=== PATIENT | female | born 1975 | race Two or more races ===

== ENCOUNTER 2019-12-08 16:43 | Outpatient (REF) | payer OTHER, SELFPAY | END 2019-12-08 16:44 | disposition home or self-care (01) | LOC: HO.LAB 16:43 | PROVIDERS: Visit Provider Internal Medicine | DX: Z20.828 Contact with and (suspected) exposure to other viral communicable diseases (principal) | CPT/HCPCS: U0003 ==

== ENCOUNTER 2020-03-05 17:23 | Outpatient (REF) | payer OTHER, SELFPAY | END 2020-03-05 17:24 | disposition home or self-care (01) | LOC: HO.LAB 17:23 | PROVIDERS: Visit Provider Internal Medicine | DX: Z20.822 Contact with and (suspected) exposure to COVID-19 (principal) | CPT/HCPCS: 36415; C9803; U0003 ==

== ENCOUNTER 2020-10-24 12:51 | Outpatient (REF) | payer OTHER, SELFPAY | END 2020-10-24 12:52 | disposition home or self-care (01) | LOC: HO.LAB 12:51 | PROVIDERS: Visit Provider Internal Medicine | DX: Z20.822 Contact with and (suspected) exposure to COVID-19 (principal) | CPT/HCPCS: C9803; U0003; U0005 ==

== ENCOUNTER 2024-07-07 09:51 | Outpatient (REF) | payer OTHER, SELFPAY ==
[2024-07-07 13:36] LABS: Cholesterol 251 mg/dL (<200); Glucose Fasting 104 mg/dL (60-99); HDL Cholesterol 42 mg/dL (>40); LDL Cholesterol Calculated 181 mg/dL (<100); Triglycerides 144 mg/dL (<150)
== END 2024-07-07 09:52 | disposition home or self-care (01) ==
LOC: HO.10HDL 09:51
PROVIDERS: Visit Provider Family Medicine
DX: I10 Essential (primary) hypertension (principal); Z83.3 Family history of diabetes mellitus; Z13.1 Encounter for screening for diabetes mellitus
CPT/HCPCS: 36415; 80061; 82947

== ENCOUNTER 2024-07-27 11:00 | Outpatient (REF) | payer OTHER, SELFPAY ==
[2024-07-27 13:42] LABS: Thyroid Stimulating Hormone 1.07 uIU/mL (0.32-4.0)
== END 2024-07-27 11:01 | disposition home or self-care (01) ==
LOC: HO.10HDL 11:00
PROVIDERS: Visit Provider Family Medicine
DX: R53.83 Other fatigue (principal)
CPT/HCPCS: 36415; 84439; 84443

== ENCOUNTER 2024-10-06 10:11 | Outpatient (AMB) | payer OTHER, SELFPAY ==
--- NOTE | 2024-10-06 10:19 | MHC.PC.OV ---
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 She reports experiencing a reaction to a bee sting that occurred last night around 5:00 PM. The sting site is described as burning severely, and the size has been increasing despite using ice and an ointment. She has a history of stress-induced seizures, with the last occurrence over six months ago. She manages stress with intermittent lorazepam use but prefers to avoid regular medication. Her breast health history includes the discovery of two lumps that were biopsied and found to be non-cancerous. Her last mammogram was conducted in April this year. She reports a past phase of smoking and occasional alcohol use, with her last drink in November for her 48th birthday. She mentions streaks of constipation, which she manages by consuming prune juice mixed with apple juice. She also reports frequent nighttime urination but attributes it to high fluid intake due to a dry mouth. Polyuria and blurry vision are additional symptoms she experiences. She mentions regular sinus and ear infections impacting her hearing. Her surgical history includes an endometrial ablation over 17 years ago due to heavy menstrual bleeding. Medical History: - Stress-induced seizure disorder - History of non-malignant breast lumps - Heavy menstrual bleeding requiring endometrial ablation - Chronic sinus and ear infections - Constipation managed through diet modifications Surgical History: - Endometrial ablation over 17 years ago - Stitches in right ankle from a fall in [place] Medications: - Lorazepam as needed for stress management related to seizure disorder Family History: - Family history of skin cancer (maternal side) - Diabetes and cardiology issues in older family members Social: - Non-smoker; brief history of smoking at age 20 for a few months - Drinks alcohol occasionally; last consumption in November - Comfortable living conditions, no financial concerns - Has children, with reported stress related to parenting - Reports an organized lifestyle with a preference for cleanliness and order [facility] Medical History (Updated 10/06/24 @ 11:12 by Graeme Kiran MD) Healthcare maintenance Social History (System 09/25/21 @ 11:10 by Pratima Grullon) Housing: House Patient Tobacco Use Status: Former Tobacco user Tobacco use type: Cigarette e-Cigarette/Vaping Use: Never Used Second Hand Smoke Exposure: No Current occupational status: employed Questionnaire PHQ-9 Over the last 2 weeks, how often have you been bothered by any of the following problems? 1. Little interest or pleasure in doing things: not at all 2. Feeling down, depressed, or hopeless: not at all 3. Trouble falling or staying asleep, or sleeping too much: not at all 4. Feeling tired or having little energy: not at all 5. Poor appetite or overeating: not at all 6. Feeling bad about yourself - or that you are a failure or have let yourself or your family down: not at all 7. Trouble concentrating on things, such as reading the newspaper or watching television: not at all 8. Moving or speaking so slowly that other people could have noticed. Or the opposite - being so fidgety or restless that you have been moving around a lot more than usual: not at all 9. Thoughts that you would be better off or of hurting yourself in some way: not at all Total score: 0 Depression Screening Interpretation: Negative Depression Screening Done: Yes 74875 - PHQ-9 Billing: Yes Source: Developed by Drs. Popeye Marcano, Hafsa Lara, Stevie Juares and colleagues, with an educational susie from [employer]. Thrive Questionnaire Date Thrive assessed: 10/06/24 I am a: Patient What is your living situation today?: I have a steady place to live Within the past 12 months, did the food you bought not last and you didn't have the money to get more?: Never true Within the past 12 months, did you worry whether your food would run out before you got money to buy more?: Never true Do you have trouble paying for medicines?: No Do you have trouble getting transportation to medical appointments?: No Do you have trouble paying your heating and electricity bill?: No Do you have trouble taking care of your child, family member or friend?: No Do you have trouble with day-to-day activities such as bathing, preparing meals, shopping, managing finances, etc.?: No Are you currently unemployed and looking for a job?: No Are you interested in more education?: No THRIVE Score: 0 AUDIT C Alcohol Use Questionnaire (AUDIT-C) 1. How often do you have a drink containing alcohol?: Monthly or less 2. How many drinks containing alcohol do you have on a typical day when you are drinking?: 1 or 2 3. How often do you have six or more drinks on one occasion?: Never Total Score: 1 Score Reviewed/Action Taken: Yes JOSE ALFREDO-7 AMB Questionnaire JOSE ALFREDO-7 Date JOSE ALFREDO - 7 assessed: 10/06/24 Feeling nervous, anxious, or on edge: 0 = Not at all Not being able to stop or control worryin = Not at all Worrying too much about different things: 0 = Not at all Trouble relaxin = Not at all Being so restless that it is hard to sit still: 0 = Not at all Becoming easily annoyed or irritable: 0 = Not at all Feeling afraid as if something awful might happen: 0 = Not at all Total JOSE ALFREDO-7 score (0-4 normal; 5-9 mild; 10-14 moderate; 15-21 severe): 0 Source: Developed by Drs. Popeye Marcano, Hafsa Lara, Stevie Juares and colleagues, with an educational susie from [employer]. JOSE ALFREDO-7 Assessment Billing JOSE ALFREDO-7 Assessment Tool: JOSE ALFREDO-7 Assessment 67485 Review of Systems Const Details: - Integumentary: Reports reaction to bee sting - Neurological: Denies seizures in recent months - Gastrointestinal: Reports constipation, polyuria - Ophthalmologic: Reports blurry vision - Ear/Nose/Throat: Reports recurrent sinus, ear infections - Genitourinary: Reports frequent urination, especially at night All systems reviewed & are unremarkable except as noted in HPI and below Physical exam (Primary Care) Vital Signs: Last Vital Signs Temp 97.2 F 10/06/24 10:37 Pulse 85 10/06/24 10:37 Resp 16 10/06/24 10:37 BP 126/76 10/06/24 10:37 Pulse Ox 95 10/06/24 10:37 Oxygen Delivery Method Room Air 10/06/24 10:37 BMI result Body Mass Index 33.7 Tobacco/Smoking Status: Tobacco use Status Tobacco use date assessed 10/06/24 10/06/24 10:20 Patient Tobacco Use Status Former Tobacco user 10/06/24 10:40 Tobacco use type Cigarette 10/06/24 10:40 e-Cigarette/Vaping Use Never Used 10/06/24 10:20 Depression Screening Interpretation: Negative Const Other: General: +Alert and oriented, Well nourished, No acute distress. Eye: Pupils are equal, round and reactive to light, Intact accommodation, Extraocular movements are intact, Normal conjunctiva, Vision is a little blurry. HENT: Normocephalic, Atraumatic, Tympanic membranes are clear, Issues with hearing due to sinus and ear infections, Oral mucosa is moist, No pharyngeal erythema, Ear canals patent. Respiratory: Lungs CTA bilaterally, No wheeze, Respirations are non-labored. Cardiovascular: Regular rate, Regular rhythm, S1 auscultated, S2 auscultated, No murmur, Good pulses equal in all extremities, Normal peripheral perfusion, No edema. Gastrointestinal: Soft, Non-tender, Non-distended, Normal bowel sounds, No organomegaly, Reports constipation managed with prune and apple juice. Musculoskeletal: Normal range of motion, Normal strength, No tenderness, No swelling, No deformity, Normal gait, Left ankle has a little bit of swelling. Integumentary: Warm, Dry, [place], Intact, Mole on neck present, not growing in size. Neurologic: Alert, Oriented, Normal sensory, Normal motor function, No focal defects, Cranial Nerves II-XII are grossly intact, Normal deep tendon reflexes. Psychiatric: Cooperative, Appropriate mood & affect, Normal judgment, Reports stress related to cleanliness and organization. Coding Level of Care Code New Pt Level 4 (59631) Complex EM visit Add On G2211 Diagnoses Healthcare maintenance Z00.00 Seizure R56.9 Additional Codes PHQ-9 - 15602 - PHQ-9 Billing: Yes ([id number]) JOSE ALFREDO-7 Assessment Billing - JOSE ALFREDO-7 Assessment Tool: JOSE ALFREDO-7 Assessment [id number] ([id number]) Assessment & Plan Assessment & Plan (1) Healthcare maintenance: Comment: Obtain Baseline Labs & Screening for Colon Cancer & PAP Smear (History of ablation therefore will refer to OBGYN) - Recent mammogram shows non-cancerous lumps; recommended continued regular mammograms. - No new interventions planned unless changes occur. Code(s): Z00.00 - Encounter for general adult medical examination without abnormal findings Category: Medical Plan: - Order Labs - Refer to OBGYN - Order Colonoscopy (2) Seizure: Comment: Reports a history of seizures with most recent 1 occurring 6 months ago. Reports associated with large amounts of stress and has been managed with p.r.n. lorazepam which he last used 3 months ago. Code(s): R56.9 - Unspecified convulsions Category: Medical Plan: Continue lorazepam Plan 1. Bee sting reaction - Recommended continued observation as symptoms persist. - Suggested [id number] loratadine to manage symptoms and advised to watch for worsening reaction. 4. Constipation - Continue current dietary management with prune and apple juice combination. - No need for additional medications at this time. 5. Nighttime polyuria - Possible overconsumption of fluids suggested as a related cause; recommended monitoring and adjustment of intake. - Consideration of underlying diabetes as a potential contributor if symptoms persist. Orders: Orders Hemoglobin A1c Today Z00.00 - Encounter for general adult medical examination without abnormal findings TSH reflex Free T4 Today Z00.00 - Encounter for general adult medical examination without abnormal findings Syphilis Screen Today Z00.00 - Encounter for general adult medical examination without abnormal findings Complete Blood Count Auto Diff Today Z00.00 - Encounter for general adult medical examination without abnormal findings Comprehensive Met. Panel Today Z00.00 - Encounter for general adult medical examination without abnormal findings Hepatitis A,B,C Profile Today Z00.00 - Encounter for general adult medical examination without abnormal findings HIV Ab/Ag Today Z00.00 - Encounter for general adult medical examination without abnormal findings Lipid Panel Today Z00.00 - Encounter for general adult medical examination without abnormal findings Vitamin D 25-OH Total Today Z00.00 - Encounter for general adult medical examination without abnormal findings Referrals DICTIONARY EDITOR Referral Z00.00 - Encounter for general adult medical examination without abnormal findings Open Access Screening Colonoscopy Referral Z00.00 - Encounter for general adult medical examination without abnormal findings Patient Instructions: During the consultation, I discussed the patient's management plan for the bee sting reaction, including the use of [id number] loratadine to manage symptoms. Additionally, the patient's seizure disorder appears well-controlled with lorazepam, and we discussed continuing this medication as needed for stress management. For constipation, we agreed on the continuation of dietary management with prune juice. I recommended adjustments to nighttime fluid intake to address frequent urination, and suggested further monitoring to rule out diabetes. We discussed her breast lumps and previous biopsies, emphasizing routine mammograms for surveillance. I outlined the need for a colonoscopy and an DICTIONARY EDITOR consult for an overdue Pap smear, emphasizing these screenings' importance. The conversation concluded with affirmation of the patient's overall good health and the outlined plan for necessary preventative care and diagnostics. - Continue monitoring the bee sting area; use ice and loratadine if needed. - Take lorazepam only as needed for stress or seizure prevention. - Keep managing constipation with prune and apple juice. - Try to reduce fluid intake at night to reduce frequent urination. - Continue with regular mammograms and arrange for a colonoscopy and Pap smear. - Look out for any increase in polyuria or any other new symptoms. - Check blood test results on the portal once they are available and contact me if there are any concerns.
[2024-10-06 10:37] VITALS: BP 126/76; PULSE 85; RESP 16; TEMP 36.2; O2SAT 95; BMI 33.7
== END 2024-10-06 11:55 | disposition home or self-care (01) ==
PROVIDERS: PCP Student in an Organized Health Care Education/Training Program; Visit Provider Student in an Organized Health Care Education/Training Program
DX: R56.9 Unspecified convulsions (principal); T63.441A Toxic effect of venom of bees, accidental (unintentional), initial encounter; K59.00 Constipation, unspecified; R35.89 Other polyuria

== ENCOUNTER → 2024-10-06 10:11 | Outpatient (BNVA) | payer OTHER, SELFPAY | PROVIDERS: PCP Internal Medicine; Visit Provider Student in an Organized Health Care Education/Training Program | DX: Z00.00 Encounter for general adult medical examination without abnormal findings (principal); R56.9 Unspecified convulsions; K59.00 Constipation, unspecified; R35.81 Nocturnal polyuria; Z13.31 Encounter for screening for depression; Z13.39 Encounter for screening examination for other mental health and behavioral disorders | CPT/HCPCS: 96127 ==